=== PATIENT | female | born 1965 | race African-American/Black ===

== ENCOUNTER 2016-09-19 14:24 | Emergency (ER) | payer OTHER ==
[~2016-09-19] VITALS: Ht 154.9 cm; Wt 83.9 kg
[2016-09-19 14:29] VITALS: BP 136/79
--- NOTE | 2016-09-19 17:02 | NUR ---
PATIENT PRESENTS TO ED WITH S/P FALL LEFT FOOT PAIN X 3.5 HOURS, ALSO C/O RIGHT KNEE ABRASION . PT STATES SHE MISSED SOME STEPS COMING DOWN THE STAIRS WITH HER GRANDCHILD AND FELL . DENIES N/V/D; SKIN IS PINK/WARM/DRY; AAOX4 WITH EVEN AND STEADY GAIT; ; HR EVEN AND REGULAR; PT DENIES ANY FEVER, CP, SOB, OR COUGH AT THIS TIME; PATIENT STATES PAIN OF 9/10 AT THIS TIME; VSS; PATIENT POSITIONED FOR COMFORT; HOB ELEVATED; BEDRAILS UP X1; BED DOWN.
[2016-09-19] MEDS ORDERED: IBUPROFEN 800 MG TAB PO ONE (17:20)
[2016-09-19] MEDS ORDERED: HYDROcodone/APAP 10/325 MG 1 TAB TAB PO PRN (17:20)
--- NOTE | 2016-09-19 17:20 | NUR ---
DR FALL AT BEDSIDE
--- NOTE | 2016-09-19 18:21 | NUR ---
Patient discharged with v/s stable. Written and verbal after care instructions given and explained. Patient alert, oriented and verbalized understanding of instructions. Ambulatory with crutches steady gait. All questions addressed prior to discharge. ID band removed. Patient advised to follow up with PMD. Rx of motrin given. Patient educated on indication of medication including possible reaction and side effects. Opportunity to ask questions provided and answered.
[2016-09-19 18:24] VITALS: BP 142/83
== END 2016-09-19 18:21 | disposition home or self-care (01) ==
LOC: MED 14:24
DX: S93.402A Sprain of unspecified ligament of left ankle, initial encounter (principal); W10.9XXA Fall (on) (from) unspecified stairs and steps, initial encounter; Y93.89 Activity, other specified; Y92.89 Other specified places as the place of occurrence of the external cause; Y99.8 Other external cause status
CPT/HCPCS: 73610; 73630; 99284; Q0092

== ENCOUNTER 2018-11-06 14:29 | Emergency (ER) | payer OTHER ==
[~2018-11-06] VITALS: Ht 154.9 cm; Wt 81.6 kg
[2018-11-06 14:35] VITALS: BP 171/90
--- NOTE | 2018-11-06 14:47 | NUR ---
c/o left mastoid area pain radiating down to left shoulder with pain upon swallowing x 1wk tender to touch---no swelling, no discoloration, or increased warmth vs right sided palpated denies recent injury no accessory muscle use noted nor drooling or muffled voice noted
[2018-11-06 15:45] VITALS: BP 136/79
--- NOTE | 2018-11-06 15:46 | NUR ---
Patient discharged with v/s stable. Written and verbal after care instructions given and explained. Patient alert, oriented and verbalized understanding of instructions. Ambulatory with steady gait. All questions addressed prior to discharge. ID band removed. Patient advised to follow up with PMD. Rx of naproxen and prednisone given. Patient educated on indication of medication including possible reaction and side effects. Opportunity to ask questions provided and answered.
== END 2018-11-06 15:46 | disposition home or self-care (01) ==
LOC: MED 14:29
DX: M43.6 Torticollis (principal); I10 Essential (primary) hypertension; Z88.0 Allergy status to penicillin; Z86.73 Personal history of transient ischemic attack (TIA), and cerebral infarction without residual deficits
CPT/HCPCS: 70360; 99283

== ENCOUNTER 2022-01-12 18:44 | Emergency (ER) | payer OTHER ==
[~2022-01-12] VITALS: Ht 172.7 cm; Wt 51.0 kg
[2022-01-12 19:08] VITALS: BP 144/76
--- NOTE | 2022-01-12 19:16 | NUR ---
PT WALKED TO BED 9
--- NOTE | 2022-01-12 19:35 | NUR ---
Patient being evaluated by physician at bedside.
[2022-01-12] MEDS ORDERED: NACL 0.9% 1,000 ML IV ONE (19:40)
[2022-01-12] MEDS ORDERED: MORPHINE SULFATE 4 MG/ML SYR IVP ONE (19:40)
[2022-01-12] MEDS ORDERED: ONDANSETRON 4 MG/2 ML VIAL IVP ONE (19:40)
[2022-01-12 20:41] LABS: BASOPHILS # (AUTO) 0.2 K/uL (0.00-0.22); BASOPHILS % (AUTO) 1.5 % (0.0-2.0); EOSINOPHILS # (AUTO) 0.2 K/uL (0-0.4); EOSINOPHILS % (AUTO) 2.2 % (0.0-4.0); HEMATOCRIT 39.1 % (36-48); HEMOGLOBIN 12.9 g/dL (12.0-16.0); LYMPHOCYTES # (AUTO) 5.3 K/uL (2.5-16.5); LYMPHOCYTES % (AUTO) 48.1 % (20.5-51.1); MEAN CORPUSCULAR HEMOGLOBIN 30 pg (27-31); MEAN CORPUSCULAR HGB CONC 33 g/dL (33-37); MEAN CORPUSCULAR VOLUME 90.4 fL (80-94); MONOCYTES # (AUTO) 0.8 K/uL (0.8-1.0); MONOCYTES % (AUTO) 7.1 % (1.7-9.3); NEUTROPHILS # (AUTO) 4.6 K/uL (1.8-7.7); NEUTROPHILS % (AUTO) 41.1 % (42.2-75.2); PLATELET COUNT (AUTO) 328 K/uL (140-450); RED BLOOD CELL COUNT(AUTO) 4.32 MIL/uL (4.20-5.40); RED CELL DISTRIBUTION WIDTH 15.2 % (11.6-13.7); WHITE BLOOD COUNT (AUTO) 11.1 K/uL (4.8-10.8)
--- NOTE | 2022-01-12 20:47 | NUR ---
PT TAKEN TO CT
--- NOTE | 2022-01-12 20:52 | NUR ---
55 Y/O FEMALE BIBS FROM HOME, C/O LUQ ABD PAIN X 1 WEEKS. NO BM 4 DAYS. PT STATES SHE IS BLOATED, NAUSEA, AND CONSTIPATED. A/O X4, GCS-15; UNLABORED BREATHING, SPEAKING IN FULL SENTENCES; AMBULATORY W/O HELP; SKIN HAS PINK UNDERTONES/DRY/WARM; DENIES COUGH, FEVER, CP, OR SOB. PMH: 3 STROKES, HTN,DM,GALL BLADDER REMOAVAL ALL: PCN, SULFA
--- NOTE | 2022-01-12 20:58 | NUR ---
PT RETURN FROM CT
[2022-01-12 21:09] LABS: ALBUMIN 3.5 g/dL (3.4-5.0); ANION GAP 11.1 (8-16); CARBON DIOXIDE 26.3 mmol/L (21-32); CREATININE 0.7 mg/dL (0.6-1.3); POTASSIUM 3.4 mmol/L (3.5-5.1); TOTAL BILIRUBIN 0.2 mg/dL (0.0-1.0)
[2022-01-12] MEDS ORDERED: TRAM50TA1 PO (21:48)
[2022-01-12] MEDS ORDERED: MAGN400S60 PO (21:48)
[2022-01-12 22:34] VITALS: BP 138/72
--- NOTE | 2022-01-12 22:35 | NUR ---
Patient discharged with v/s stable. Written and verbal after care instructions given and explained. Patient alert, oriented and verbalized understanding of instructions. Ambulatory with steady gait. All questions addressed prior to discharge. ID band removed. Patient advised to follow up with PMD. Rx of ULTRAM AND MILK OF MAGNESIA given. Patient educated on indication of medication including possible reaction and side effects. Opportunity to ask questions provided and answered. VSS, A/OX4, AMBULATORY, UNLABORED BREATHING, AND CALM DEMEANOR.
== END 2022-01-12 22:35 | disposition home or self-care (01) ==
LOC: MED 18:44
DX: R14.0 Abdominal distension (gaseous) (principal); I10 Essential (primary) hypertension; Z79.899 Other long term (current) drug therapy; Z88.0 Allergy status to penicillin; Z86.73 Personal history of transient ischemic attack (TIA), and cerebral infarction without residual deficits
CPT/HCPCS: 36415; 74176; 80053; 83690; 83880; 84702; 85025; 96361; 96374; 96375; 99284; J2270; J2405; J7030